=== PATIENT | male | born 1970 | race American Indian/Alaskan Native ===

== ENCOUNTER 2019-08-29 13:12 | Emergency (ER) | payer OTHER ==
[2019-08-29 13:39] VITALS: BP 109/73
[2019-08-29] MEDS ORDERED: IBUPROFEN 600 MG TAB PO ONE (14:31)
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
== END 2019-08-29 15:00 | disposition home or self-care (01) ==
LOC: ED 13:12
DX: R51 Headache (principal); M25.511 Pain in right shoulder; I11.0 Hypertensive heart disease with heart failure; I50.9 Heart failure, unspecified; E11.9 Type 2 diabetes mellitus without complications; K21.9 Gastro-esophageal reflux disease without esophagitis; Z79.899 Other long term (current) drug therapy; V49.49XA Driver injured in collision with other motor vehicles in traffic accident, initial encounter; Y93.89 Activity, other specified; Y92.488 Other paved roadways as the place of occurrence of the external cause; Y99.8 Other external cause status
CPT/HCPCS: 99283